=== PATIENT | female | born 1940 | race Caucasian/White ===

== ENCOUNTER 2017-07-06 08:30 | Inpatient (IN) | payer OTHER, MEDICARE ==
[~2017-07-06] VITALS: Ht 157.5 cm; Wt 69.2 kg
[2017-08-20] MEDS ORDERED: ATEN25TA PO (11:21)
[2017-08-20] MEDS ORDERED: METF500T PO (11:21)
[2017-08-20] MEDS ORDERED: FISHCAP4 PO (11:21)
[2017-08-20] MEDS ORDERED: LOSA50TA PO (11:21)
[2017-08-20] MEDS ORDERED: ACET-822 PO (11:21)
[2017-08-20] MEDS ORDERED: ATOR20TA15 PO (11:21)
[2017-08-24] MEDS ORDERED: ACETAMINOPHEN 1000 MG/100 ML 100 ML IV ONE (05:51)
[2017-08-24] MEDS ORDERED: GENTAMICIN SULFATE 80 MG/2 ML VIAL ONE (06:26)
[2017-08-24] MEDS ORDERED: METOPROLOL TARTRATE 25 MG TAB PO PRN (06:30)
[2017-08-24] MEDS ORDERED: CEFAZOLIN INJ 2,000 MG in SODIUM CHLORIDE 0.9% INJ 100 ML IV SCH (06:30)
[2017-08-24] MEDS ORDERED: CHLORHEXIDINE GLUCONATE 4% SOLN 120 ML BTL TOPICAL SCH (06:30)
[2017-08-24] MEDS ORDERED: DEXAMETHASONE SOD PHOS PF 10 MG/ML VIAL IV PUSH ONE (06:30)
[2017-08-24] MEDS ORDERED: LACTATED RINGER'S 1000 ML IV PRN (06:30)
[2017-08-24] MEDS ORDERED: POVIDONE IODINE 7.5% SCRUB 118 ML BOTTLE TOPICAL SCH (06:30)
[2017-08-24] MEDS ORDERED: CHLORHEXIDINE GLUCONATE 2 % 1 PACK (2 CLOTHS) TOPICAL PRN (06:30)
[2017-08-24] MEDS ORDERED: VANCOMYCIN 1 GM/200 ML INJ 200 ML IV SCH (06:30)
[2017-08-24] MEDS ORDERED: SODIUM CHLORID 0.9% 500 ML IV PRN (06:30)
[2017-08-24] MEDS ORDERED: POVIDONE IODINE 5% (ANTISEPSIS KIT) 4 APPLICATIONS EACH NARE PRN (06:30)
[2017-08-24] MEDS ORDERED: CALC1TAB16 PO (06:45)
[2017-08-24] MEDS ORDERED: HYDR-3288 PO (06:55)
[2017-08-24] MEDS ORDERED: ASPI81CH6 CHEW (06:55)
[2017-08-24] MEDS ORDERED: ACETAMINOPHEN/HYDROcodone 325 MG/10 MG TAB PO PRN (07:00)
[2017-08-24] MEDS ORDERED: ONDANSETRON HCL 4 MG/2 ML VIAL IVP PRN (07:00)
[2017-08-24] MEDS ORDERED: MORPHINE SULFATE 4 MG/ML INJ IV PUSH PRN (07:00)
[2017-08-24] MEDS ORDERED: diphenhydrAMINE HCL 50 MG/ML VIAL IV PUSH PRN (07:00)
[2017-08-24] MEDS ORDERED: ZOLPIDEM TARTRATE 5 MG TAB PO PRN (07:00)
[2017-08-24 07:50] VITALS: PULSE 76
[2017-08-24] MEDS ORDERED: Post-op Orders (for Pharmacy) XX ONE (08:00)
[2017-08-24] MEDS ORDERED: SODIUM CHLORIDE 0.9% IV SCH (08:30)
[2017-08-24] MEDS ORDERED: ROPIVACAINE PERI-ARTICULAR INJECTION. P-ARTICULR SCH ×5 (08:30)
[2017-08-24] MEDS ORDERED: TRANEXAMIC PERI-ARTICULAR 3,000 MG/NS 100 ML P-ARTICULR SCH ×2 (08:30)
[2017-08-24] MEDS ORDERED: TRANEXAMIC ACID IV SCH (08:30)
[2017-08-24] MEDS: metFORMIN HCL 500 MG TAB PO SCH ×2 (09:00→18:29)
[2017-08-24] MEDS: LOSARTAN 50 MG TAB PO SCH (09:00)
[2017-08-24] MEDS ORDERED: MIDAZOLAM HCL 2 MG/2 ML VIAL ONE (11:17)
--- NOTE | 2017-08-24 11:18 | MP ---
cc: Geovanni Hale MD DATE OF OPERATION: 08/24/2017 PREOPERATIVE DIAGNOSIS: Right shoulder osteoarthritis. POSTOPERATIVE DIAGNOSIS: Right shoulder osteoarthritis. PROCEDURE: Right total shoulder arthroplasty. SURGEON: Geovanni Hale MD BRUSH CLEARING LABORER: VERONICA Govea. ANESTHESIA: General with an anterior interscalene block. ESTIMATED BLOOD LOSS: 200 mL. COMPLICATIONS: None. IMPLANTS USED: Arthrex size small cemented glenoid component, size 9 humeral stem, size 46 x 17 humeral head. JUSTIFICATION: This patient is a 76-year-old female with a history of severe end-stage osteoarthritis involving the right shoulder. She has severe disabling pain with any movement or use of that shoulder and also pain at rest. She has failed extensive nonoperative conservative treatment which extended over 3 months duration to include medications, therapy, injections, activity modification. X-rays of the right shoulder reveals severe end-stage osteoarthritis with [id number] joint space narrowing, subchondral sclerosis, subchondral cyst, osteophyte formation with deformity and subluxation. The patient was counseled as to the risks, benefits and alternatives to a total shoulder arthroplasty. The risks were discussed, which include, but are not limited to anesthesia, bleeding, infection, damage to nerves and blood vessels, pain, stiffness, fracture dislocation, blood clots, continued pain. The patient's symptoms were severe and unresponsive to conservative treatment. She favored the benefits over the risks and did wish to proceed with surgical intervention for the right shoulder. PROCEDURE IN DETAIL: Written consent was obtained. The patient was identified by name. Scalene block anesthesia was administered to the right upper extremity by the anesthesiologist. The patient was taken to the operating room. General anesthesia was administered, as well as 2 grams of IV Ancef and 1 gram of IV vancomycin. The patient was carefully placed in a beach chair position. All bony prominences and pressure points were well padded. The right shoulder and right upper extremity prepped and draped using isopropyl alcohol, Hibiclens solution and ChloraPrep solution. After a timeout was performed, an longitudinal incision was made over the anterior aspect of the right shoulder. The deltopectoral interval was explored. The conjoined tendon was retracted medially. A 15 blade scalpel was used to incise the subscapularis tendon and capsule. This was tagged with multiple #2 FiberWire sutures. The humeral head was dislocated. A rongeur were used to remove osteophytes around the humeral head and glenoid. A guidewire was used to entered into the superior aspect of the humeral head and shaft region. Subsequently, a humeral resection guide was placed over the guidewire. This was pinned in place and the humeral resection was performed. At this point, a canal finder was placed within the humeral shaft and this was followed by sequential hand reaming up to 7 mm. Subsequently, sequential broaching up to a size 9 was performed. Once the humerus was prepared, attention was turned to the glenoid where the capsule was released off the glenoid circumferentially to allow for mobilization. Once adequate exposure was achieved, a size small glenoid component trial was placed and a central drill hole was placed. This was followed by the reaming and subsequently the superior and inferior drill holes were performed in preparation for the glenoid component. The shoulder was thoroughly irrigated with sterile saline pulse lavage antibiotic impregnated solution. Once repaired, the size small glenoid component was cemented and placed and this was held in place manually until cement hardened. I removed extravasated cement surrounding the glenoid component once it was press fit. Attention was then turned back to the humerus where a final size 9 humeral stem was implanted. The inferior and superior screws were then locked in place for the inclination of the neck and trial head components were evaluated. The final size 46 x 17 head was implanted and impacted in place for stability. With the shoulder reduced, the arm could be forward flexed to 170 degrees without evidence of anterior instability or impingement. I could internally and externally rotate the arm, again without evidence of impingement or instability. At this point, the subscapularis tendon was repaired primarily with the multiple #2 FiberWire sutures. The surgical wound was thoroughly irrigated with sterile saline solution. The subcutaneous layer was closed with 3-0 Vicryl suture. Skin was closed with Dermabond. Sterile dressing was applied. The patient tolerated the procedure well. There were no intraoperative complications noted. Roni Miranda PA-C was present for the entire procedure to clear patient positioning and the procedure itself. The medical necessity of a physician child center assistant was indicated in this case due to the complexity of the procedure. He assisted with appropriate manipulation of the arm. He assisted with preparation of bone and also implantation of the prosthetic replacement during the surgical procedure. MD MIRZA Perales/MYESHA , 10:51 AM , 11:17 AM
[2017-08-24] MEDS: SODIUM CHLOR 0.9% 1000 ML INJ 1,000 ML IV SCH ×2 (11:41→18:00)
[2017-08-24] MEDS ORDERED: DO NOT ADM ANY ANTICOAGULANT DRUGS PRN (11:45)
[2017-08-24] MEDS ORDERED: *morphine SULFATE 4 MG/ML PERIprocedure ONLY ONE ×2 (11:54→12:49)
[2017-08-24] MEDS ORDERED: ROCURONIUM INJ 50 MG/5 ML SYRINGE IV PUSH ONE (12:00)
[2017-08-24] MEDS ORDERED: METOPROLOL TARTRATE 5 MG/5 ML VIAL IV ONE (12:00)
[2017-08-24] MEDS ORDERED: NEOSTIGMINE 5 MG/5 ML SYRINGE IV PUSH ONE (12:00)
[2017-08-24] MEDS ORDERED: LIDOCAINE HCL 1% PF 5 ML SYRINGE OTHER ONE (12:00)
[2017-08-24] MEDS ORDERED: PHENYLEPHRINE HCL 10 MG/ML VIAL IV ONE (12:00)
[2017-08-24] MEDS ORDERED: GLYCOPYRROLATE 1 MG/5 ML SYRINGE IV PUSH ONE (12:00)
[2017-08-24] MEDS ORDERED: ePHEDrine/NS 25 MG/5 ML SYRINGE IV ONE (12:00)
[2017-08-24] MEDS ORDERED: PROPOFOL 200 MG/20 ML AMP IV ONE (12:00)
[2017-08-24] MEDS ORDERED: LACTATED RINGER'S 1000 ML INJ 1,000 ML IV ONE (12:00)
[2017-08-24] MEDS ORDERED: PHENYLEPH/NS 1000 MCG/10 ML SYR IV ONE (12:00)
[2017-08-24] MEDS ORDERED: ONDANSETRON HCL 4 MG/2 ML VIAL IV PUSH ONE (12:00)
--- NOTE | 2017-08-24 12:07 | RADRPT ---
EXAM DATE/TIME: 08/24/2017 12:21 [place] COMPARISON: No previous studies available for comparison. INDICATIONS : Post-op meghana right shoulder arthroplasty. MEDICAL HISTORY : Hypertension. Diabetes mellitus type II. SURGICAL HISTORY : Hysterectomy. ENCOUNTER: Initial ACUITY: 1 day PAIN SCORE: 5/10 LOCATION: Right upper extremity FINDINGS: There is a right shoulder prosthesis present. There is soft tissues density and air seen around the r ight glenohumeral joint which is not expected following surgery. The prosthetic component at the prox imal humerus appears well placed. CONCLUSION: Status post placement of a right shoulder prosthesis. José Miguel Stevens MD on August 24, 2017 at 12:04 Board Certified Radiologist. This report was verified electronically.
--- NOTE | 2017-08-24 15:16 | EKG ---
Date Performed: 08/24/2017 Time Performed: 06:50:08 PTAGE: 76 years EKG: Sinus rhythm LOW QRS VOLTAGE IN PRECORDIAL LEADS MODERATE INTRAVENTRICULAR CONDUCTION DELAY MODERATE ST DEPRESSIO N ABNORMAL ECG NO PREVIOUS TRACING DOCTOR: Jeffrey Mijares Interpretating Date/Time 08/24/2017 15:11:32
--- NOTE | 2017-08-24 15:27 | PD.CONS ---
HPI Service [facility] Hospitalists Consult Requested By Dr. Hale Reason for Consult Medical management Primary Care Physician Luz Elena Soriano MD Diagnoses: History of Present Illness 76 year old female with diabetes, hypertension, and hyperlipidemia admitted to the orthopedic service for right shoulder total arthroplasty. Hospitalist service consulted for medical management. She is seen following her procedure when she was brought to the floor. She states the surgery went well and she ultimately went through with the procedure due to decreased quality of life from chronic right shoulder arthritis and rotator cuff pathology. She states otherwise she is in generally healthy condition. Her pain is currently controlled. Her only complaint was spasms in her bladder following surgery when she tried to urinate on the bed langley. She denies urinary urgency, frequency, fever, or chills but states she has been treated for UTIs in the past. 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 Hysterectomy Appendectomy Reported Medications Aspirin Low Dose (Aspirin) 81 Mg Chew 81 Mg CHEW BID 30 Days [place] (Hydrocodone-Acetaminophen) 7.5-325 mg Tab 1-2 Tab PO Q6H PRN Calcium Citrate-Vitamin D 315-200 Mg-Unit Tab 1 Tab PO BID Tylenol Extra Strength (Acetaminophen) 500 Mg Tablet 1 Tab PO DAILY Fish Oil + D3 (Fish Oil-Cholecalciferol) 1,200-1,000 Mg-Unit Cap 1 Cap PO DAILY Atorvastatin (Atorvastatin Calcium) 20 Mg Tab 20 Mg PO HS Metformin (Metformin HCl) 500 Mg Tab 500 Mg PO BIDPC Atenolol 25 Mg Tab 25 Mg PO HS Losartan (Losartan Potassium) 50 Mg Tab 50 Mg PO DAILY Active Ordered Medications Acetaminophen 100 ml @ As Directed STK-MED ONCE IV; Start 08/24/17 at 05:51; Stop 08/24/17 at 05:52; Status DC Acetaminophen/ Hydrocodone Bitart ([place] 10-325 Mg) 1 tab Q4H PRN PO; Start 08/24/17 at 07:00 Acetaminophen/ Hydrocodone Bitart ([place] 10-325 Mg) 2 tab Q6H PRN PO; Start 08/24/17 at 07:00 Atenolol (Tenormin) 25 mg HS PO; Start 08/24/17 at 21:00 Atorvastatin Calcium (Lipitor) 20 mg HS PO; Start 08/24/17 at 21:00 Cefazolin Sodium 1000 mg/Sodium Chloride 100 ml @ 200 mls/hr Q6H IV Last administered on 08/24/17at 13:15; Admin Dose 200 MLS/HR; Start 08/24/17 at 13:00; Stop 08/25/17 at 01:29 Cefazolin Sodium 2000 mg/Sodium Chloride 120 ml @ 240 mls/hr COLLECTIONS ATTORNEY IV Last administered on 08/24/17at 08:34; Admin Dose 240 MLS/HR; Start 08/24/17 at 06:30; Stop 08/25/17 at 06:29 Chlorhexidine Gluconate (Chlorhexidine 2% Cloth) 3 pack COLLECTIONS ATTORNEY PRN TOPICAL Last administered on 08/24/17at 06:45; Admin Dose 3 PACK; Start 08/24/17 at 06:30; Stop 08/27/17 at 06:29 Chlorhexidine Gluconate (Hibiclens 4% Top Soln) 1 applic ONCE TOPICAL Last administered on 08/24/17at 06:45; Admin Dose 1 APPLIC; Start 08/24/17 at 06:30; Stop 08/27/17 at 06:29 Dexamethasone Sodium Phosphate (Decadron Pf Inj) 10 mg ONCE ONCE IV PUSH Last administered on 08/24/17at 07:22; Admin Dose 10 MG; Start 08/24/17 at 06:30; Stop 08/24/17 at 06:31; Status DC Diphenhydramine HCl (Benadryl Inj) 25 mg Q6H PRN IV PUSH; Start 08/24/17 at 07: 00 Docusate Sodium (Colace) 100 mg BID PO; Start 08/25/17 at 21:00 Enoxaparin Sodium (Lovenox Inj) 40 mg Q24H SQ; Start 08/25/17 at 10:00; Stop at 10:01 Fentanyl Citrate (fentaNYL INJ) 200 mcg STK-MED ONCE .ROUTE; Start 08/24/17 at 11 :17; Stop 08/24/17 at 11:18; Status DC Gentamicin Sulfate (Gentamicin Inj) 240 mg STK-MED ONCE .ROUTE; Start 08/24/17 at 06:26; Stop 08/24/17 at 06:27; Status DC Lactated Ringer's 1,000 ml @ 30 mls/hr Q24H PRN IV Last administered on at 07:15; Admin Dose 30 MLS/HR; Start 08/24/17 at 06:30; Stop 08/27/17 at 06:29 Losartan Potassium (Cozaar) 50 mg DAILY PO; Start 08/24/17 at 09:00 Metformin HCl (Glucophage) 500 mg BIDPC PO; Start 08/24/17 at 09:00 Metoprolol Tartrate (Lopressor) 25 mg COLLECTIONS ATTORNEY PRN PO; Start 08/24/17 at 06:30; Stop 08/27/17 at 06:29 Midazolam HCl (Versed Inj) 4 mg STK-MED ONCE .ROUTE; Start 08/24/17 at 11:17; Stop 08/24/17 at 11:18; Status DC Miscellaneous Information ALL NURSING DEPARTME... UNSCH PRN .XX; Start 08/24/17 at 11:45; Stop 08/25/17 at 11:44 Miscellaneous Information (Post-op Orders (for Pharmacy)) STAT ONCE XX; Start 08/24/17 at 08:00; Stop 08/24/17 at 08:01; Status DC Morphine Sulfate (*morphine INJ PERIprocedure ONLY) 4 mg STK-MED ONCE .ROUTE Last administered on 08/24/17at 11:54; Admin Dose 4 MG; Start 08/24/17 at 11:54; Stop 08/24/17 at 11:55; Status DC Morphine Sulfate (*morphine INJ PERIprocedure ONLY) 4 mg STK-MED ONCE .ROUTE Last administered on 08/24/17at 12:49; Admin Dose 4 MG; Start 08/24/17 at 12:49; Stop 08/24/17 at 12:50; Status DC Morphine Sulfate (Morphine Inj) 3 mg Q3H PRN IV PUSH; Start 08/24/17 at 07:00 Multivitamins/ Minerals Therapeutic (Theragran M Tab) 1 tab BID PO; Start at 21:00; Stop 10/24/17 at 20:59 Ondansetron HCl (Zofran Inj) 4 mg Q6H PRN IVP; Start 08/24/17 at 07:00 Povidone Iodine (Betadine 5% Antisepsis Kit) 1 applic COLLECTIONS ATTORNEY PRN EACH NARE Last administered on 08/24/17at 06:45; Admin Dose 1 APPLIC; Start 08/24/17 at 06:30 ; Stop 08/27/17 at 06:29 Povidone Iodine (Betadine 7.5% Scrub) 1 applic ONCE TOPICAL; Start 08/24/17 at 06 :30; Stop 08/27/17 at 06:29 Ropivacaine 24.63 ml/Ketorolac Tromethamine 30 mg/Epinephrine HCl 0.5 mg/ Clonidine 80 mcg/ Sodium Chloride 100 ml @ 200 mls/hr ONCE P-ARTICULR; Start at 08:30; Stop 08/24/17 at 14:30; Status DC Sodium Chloride 500 ml @ 30 mls/hr [id number] PRN IV; Start 08/24/17 at 06:30; Stop 08/27/17 at 06:29 Sodium Chloride 1,000 ml @ 100 mls/hr Q10H IV Last administered on 08/24/17at 11: 41; Admin Dose 100 MLS/HR; Start 08/24/17 at 08:00 Tranexamic Acid 1038 mg/Sodium Chloride 110.38 ml @ 200 mls/ hr ONCE IV; Start 08/24/17 at 08:30; Stop 08/24/17 at 14:30; Status DC Tranexamic Acid 3000 mg/Sodium Chloride 130 ml @ 260 mls/hr ONCE P-ARTICULR; Start 08/24/17 at 08:30; Stop 08/24/17 at 14:30; Status DC Vancomycin/Sodium Chloride 200 ml @ 250 mls/hr COLLECTIONS ATTORNEY IV Last administered on 08/24/17at 08:15; Admin Dose 250 MLS/HR; Start 08/24/17 at 06:30; Stop 08/25/17 at 06:29 Zolpidem Tartrate (Ambien) 5 mg HS PRN PO; Start 08/24/17 at 07:00 Family History Diabetes in several brothers Social History Lives with Denies EtOH, tobacco, illicit drugs Physical Exam Vital Signs Vital Signs Date Time Temp Pulse Resp B/P (MAP) Pulse Ox O2 Delivery O2 Flow Rate FiO2 08/24/17 14:00 97.7 82 19 151/72 (98) 95 Nasal Cannula 2 08/24/17 13:00 73 20 142/65 (90) 96 Nasal Cannula 2 08/24/17 12:30 77 22 136/63 (87) 99 Nasal Cannula 2 08/24/17 12:00 65 14 135/58 (83) 98 Nasal Cannula 2 08/24/17 11:45 70 21 150/69 (96) 95 Nasal Cannula 2 08/24/17 11:30 73 20 146/67 (93) 95 Nasal Cannula 2 08/24/17 11:15 83 18 156/65 (95) 93 Nasal Cannula 2 08/24/17 11:09 97.9 82 20 143/65 (91) 94 Simple Mask 6 08/24/17 08:12 77 133/64 (87) 08/24/17 07:50 100 Nasal Cannula 08/24/17 07:50 76 08/24/17 06:45 99.0 72 18 184/86 (118) 99 Physical Exam GENERAL: Well-nourished, well-developed elderly female in no apparent distress. SKIN: No rashes, ecchymoses or lesions. Cool and dry. HEENT: Atraumatic. Normocephalic. No temporal or scalp tenderness. Pupils equal round and reactive. Extraocular motions intact. No scleral icterus. No injection or drainage. Nose without bleeding, purulent drainage or septal hematoma. Throat without erythema, tonsillar hypertrophy or exudate. Uvula midline. Airway patent. NECK: Trachea midline. No JVD or lymphadenopathy. Supple, nontender, no meningeal signs. CARDIOVASCULAR: Regular rate and rhythm without murmurs, gallops, or rubs. RESPIRATORY: Clear to auscultation. Breath sounds equal bilaterally. No wheezes , rales, or rhonchi. GASTROINTESTINAL: Abdomen soft, nontender, nondistended. No hepatosplenomegaly or palpable masses. No guarding. MUSCULOSKELETAL: Extremities without clubbing, cyanosis, or edema. No joint tenderness, effusion, or edema noted. RUE in sling. No calf tenderness. NEUROLOGICAL: Awake and alert.Motor and sensory grossly within normal limits. Normal speech. Imaging Shoulder X-Ray 08/24/17 0000 Signed Impressions: Service Date/Time: Thursday, August 24, 2017 12:21 - CONCLUSION: Status post placement of a right shoulder prosthesis. José Miguel Stevens MD Assessment and Plan Assessment and Plan 76 YOWF admitted for total R shoulder arthroplasty. Hospitalist consulted for medical management. 1. S/P R shoulder total arthroplasty - Ortho managing - Pain control - Lovenox ordered for tomorrow - PT - Check post-op H&H tomorrow 2. Bladder spasm - Check U/A for possible UTI 3. DM - Resume home metformin 4. HTN - Resume home Losartan - Clonidine PRN 5. Benign tachycardia - Worked up in the past as an outpatient - Continue home atenolol 6. HLD - Continue home statin DVT prophylaxis: Lovenox starting tomorrow Discussed Condition With Patient and RN Clari Cristobal MD Aug 24, 2017 15:27
[2017-08-24] MEDS ORDERED: cloNIDine HCL 0.1 MG TAB PO PRN (16:45)
[2017-08-24 20:00] VITALS: BP 119/73; PULSE 87; RESP 16; TEMP 97.9; O2SAT 96
[2017-08-24] MEDS: ATORVASTATIN 20 MG TAB PO SCH (21:40)
[2017-08-24] MEDS: ATENOLOL 25 MG TAB PO SCH (21:41)
[2017-08-24 23:25] VITALS: BP 107/62; PULSE 90; RESP 16; TEMP 97.5; O2SAT 95
[2017-08-25 03:20] VITALS: BP 142/62; PULSE 79; RESP 16; TEMP 97.8; O2SAT 96
[2017-08-25] MEDS: SODIUM CHLOR 0.9% 1000 ML INJ 1,000 ML IV SCH ×3 (03:46→19:56)
[2017-08-25 05:02] LABS: HEMATOCRIT 31.7 % (35.0-46.0); HEMOGLOBIN 11.3 GM/DL (11.6-15.3); MEAN CORPUSCULAR HGB CONC 35.6 % (32.0-36.0); MEAN PLATELET VOLUME 7.7 FL (7.0-11.0); PLATELET COUNT 260 TH/MM3 (150-450); RED BLOOD COUNT 3.52 MIL/MM3 (4.00-5.30); RED CELL DISTRIBUTION WIDTH 13.3 % (11.6-17.2); WHITE BLOOD COUNT 9.8 TH/MM3 (4.0-11.0)
[2017-08-25 05:28] LABS: BICARBONATE 23.4 MEQ/L (21.0-32.0); CALCIUM 8.6 MG/DL (8.5-10.1); CREATININE 1.04 MG/DL (0.50-1.00)
[2017-08-25 07:46] VITALS: BP 104/59; PULSE 77; RESP 18; TEMP 97.3; O2SAT 96
--- NOTE | 2017-08-25 08:02 | PD.ORT.PN ---
Subjective Post Op Day #: 1 Subjective Remarks pain controlled. nerve block still in effect. Objective Vitals Vital Signs Date Time Temp Pulse Resp B/P (MAP) Pulse Ox O2 Delivery O2 Flow Rate FiO2 08/25/17 07:46 97.3 77 18 104/59 (74) 96 08/25/17 07:17 Room Air 08/25/17 03:20 97.8 79 16 142/62 (88) 96 08/24/17 23:25 97.5 90 16 107/62 (77) 95 08/24/17 20:00 97.9 87 16 119/73 (88) 96 08/24/17 14:00 97.7 82 19 151/72 (98) 95 Nasal Cannula 2 08/24/17 13:00 73 20 142/65 (90) 96 Nasal Cannula 2 08/24/17 12:30 77 22 136/63 (87) 99 Nasal Cannula 2 08/24/17 12:00 65 14 135/58 (83) 98 Nasal Cannula 2 08/24/17 11:45 70 21 150/69 (96) 95 Nasal Cannula 2 08/24/17 11:30 73 20 146/67 (93) 95 Nasal Cannula 2 08/24/17 11:15 83 18 156/65 (95) 93 Nasal Cannula 2 08/24/17 11:09 97.9 82 20 143/65 (91) 94 Simple Mask 6 08/24/17 08:12 77 133/64 (87) I/O 08/24/17 08/24/17 08/24/17 08/25/17 08/25/17 08/25/17 07:00 15:00 23:00 07:00 15:00 23:00 Intake Total 2210 ml 317 ml 580 ml Output Total 350 ml Balance 1860 ml 317 ml 580 ml Intake Oral 210 ml 480 ml IV Total 2000 ml 317 ml 100 ml Output Urine Total 300 ml Estimated Blood Loss 50 ml # Voids 1 4 # Bowel Movements 0 Result Diagram: 08/25/1732708/25/17327 Objective Remarks in bed, nad sling in place dressing c/d/i mild ecchymosis cap refill nerve block still in effect Assessment & Plan Ortho Post Op Day #: 1 Problem List: Assessment and Plan s/p R TSA sling and swathe gentle ROM, no external rotation lovenox, d/c on asa81 PT nerve block still in effect, monitor pain as block wears off d/c planning home with c and pt f/up dr. carmen 2 weeks Geovanni Miranda Aug 25, 2017 08:02
--- NOTE | 2017-08-25 08:03 | HHI.DCPOC ---
Discharge Care Plan Diagnosis: (1) Primary localized osteoarthrosis of shoulder region Your Health Problems Are: Difficulty with ADL Goals to Promote Your Health * To prevent worsening of your condition and complications * To maintain your health at the optimal level Directions to Meet Your Goals Take your medications as prescribed Follow your dietary instruction Follow activity as directed Keep your appointments as scheduled Take your immunizations and boosters as scheduled If your symptoms worsen call your PCP, if no PCP go to Urgent Care Center or Emergency Room Smoking is Dangerous to Your Health. Avoid second hand smoke Call the 24-hour hour crisis hotline for domestic abuse at Geovanni Miranda Aug 25, 2017 08:03
--- NOTE | 2017-08-25 08:04 | HHI.FF ---
Face to Face Verification Diagnosis: (1) Primary localized osteoarthrosis of shoulder region Physical Therapy Gait training, Safety evaluation, Transfer training, bed to chair Occupational Therapy Right UE Range of Motion: Passive ROM Nursing RN: 3 days/week x 2 weeks Nursing: Dressing changes Dressing Changes: Daily dressing change I have seen patient Unique Leon on 08/25/17. My clinical findings support the need for the requested home health care services because: Limited ability to care for self High risk of falls I certify that my clinical findings support that this patient is homebound because: Post-op weakness Unsteady gait/balance Geovanni Miranda Aug 25, 2017 08:04
[2017-08-25] MEDS: metFORMIN HCL 500 MG TAB PO SCH ×2 (08:48→17:40)
[2017-08-25] MEDS: LOSARTAN 50 MG TAB PO SCH (08:48)
--- NOTE | 2017-08-25 08:51 | HHI.PR ---
Subjective Remarks Follow-up for urinary symptoms No overnight events, no urinary symptoms, afebrile. No dysuria, frequency or urgency. Discussed with nursing. Pain is stable. Objective Vitals Vital Signs Date Time Temp Pulse Resp B/P (MAP) Pulse Ox O2 Delivery O2 Flow Rate FiO2 08/25/17 07:46 97.3 77 18 104/59 (74) 96 08/25/17 07:17 Room Air 08/25/17 03:20 97.8 79 16 142/62 (88) 96 08/24/17 23:25 97.5 90 16 107/62 (77) 95 08/24/17 20:00 97.9 87 16 119/73 (88) 96 08/24/17 14:00 97.7 82 19 151/72 (98) 95 Nasal Cannula 2 08/24/17 13:00 73 20 142/65 (90) 96 Nasal Cannula 2 08/24/17 12:30 77 22 136/63 (87) 99 Nasal Cannula 2 08/24/17 12:00 65 14 135/58 (83) 98 Nasal Cannula 2 08/24/17 11:45 70 21 150/69 (96) 95 Nasal Cannula 2 08/24/17 11:30 73 20 146/67 (93) 95 Nasal Cannula 2 08/24/17 11:15 83 18 156/65 (95) 93 Nasal Cannula 2 08/24/17 11:09 97.9 82 20 143/65 (91) 94 Simple Mask 6 I/O 08/24/17 08/24/17 08/24/17 08/25/17 08/25/17 08/25/17 07:00 15:00 23:00 07:00 15:00 23:00 Intake Total 2210 ml 317 ml 580 ml Output Total 350 ml Balance 1860 ml 317 ml 580 ml Intake Oral 210 ml 480 ml IV Total 2000 ml 317 ml 100 ml Output Urine Total 300 ml Estimated Blood Loss 50 ml # Voids 1 4 # Bowel Movements 0 Result Diagram: 08/25/1732708/25/17327 Objective Remarks Not in distress, well-nourished, looks stated age Normal rate and regular rhythm, no murmurs gallops or rubs appreciated. Clear to auscultation and symmetric bilaterally, normal respiratory effort. Normal bowel sounds, soft, non-tender, nondistended, no guarding. Right upper extremity sling in place AAO x3, no cranial nerve deficits A/P Assessment and Plan 76 YOWF admitted for total R shoulder arthroplasty. Hospitalist consulted for medical management. 1. S/P R shoulder total arthroplasty - Ortho managing - Pain control - Hgb stable 2. Bladder spasm -Resolved, asymptomatic. No further workup. 3. DM - Resume home metformin 4. HTN - Resume home Losartan - Clonidine PRN 5. Benign tachycardia - Worked up in the past as an outpatient - Continue home atenolol 6. HLD - Continue home statin DVT prophylaxis: Lovenox Patient is stable, medically clear for discharge, we will sign off. Crystal Oconnor MD Aug 25, 2017 08:51
[2017-08-25] MEDS ORDERED: ENOXAPARIN SODIUM 40 MG/0.4 ML SYRINGE SQ SCH (10:00)
[2017-08-25 11:52] VITALS: BP 141/65; PULSE 74; RESP 18; TEMP 97.9; O2SAT 96
[2017-08-25 15:38] VITALS: BP 158/66; PULSE 64; RESP 18; TEMP 97.6; O2SAT 98
[2017-08-25 19:25] VITALS: BP 117/69; PULSE 74; RESP 18; TEMP 98.3; O2SAT 96
[2017-08-25] MEDS: DOCUSATE SODIUM 100 MG CAP PO SCH (19:49)
[2017-08-25] MEDS: MULTIVITAMINS/MINERALS THERAPEUTIC TAB PO SCH (19:50)
[2017-08-25] MEDS: ATENOLOL 25 MG TAB PO SCH (19:50)
[2017-08-25] MEDS: ATORVASTATIN 20 MG TAB PO SCH (19:50)
[2017-08-26 00:29] VITALS: BP 141/66; PULSE 74; RESP 16; TEMP 97.6; O2SAT 97
[2017-08-26] MEDS: ACETAMINOPHEN/HYDROcodone 325 MG/10 MG TAB PO PRN ×3 (02:21→11:41)
[2017-08-26 04:49] VITALS: BP 108/53; PULSE 72; RESP 18; TEMP 97.7; O2SAT 95
[2017-08-26 06:58] LABS: HEMOGLOBIN 9.6 GM/DL (11.6-15.3); MEAN CELL VOLUME 90.8 FL (80.0-100.0); MEAN CORPUSCULAR HEMOGLOBIN 32.3 PG (27.0-34.0); MEAN CORPUSCULAR HGB CONC 35.6 % (32.0-36.0); MEAN PLATELET VOLUME 7.5 FL (7.0-11.0); PLATELET COUNT 204 TH/MM3 (150-450); RED BLOOD COUNT 2.98 MIL/MM3 (4.00-5.30); RED CELL DISTRIBUTION WIDTH 13.8 % (11.6-17.2); WHITE BLOOD COUNT 8.1 TH/MM3 (4.0-11.0)
[2017-08-26 07:14] LABS: BICARBONATE 25.2 MEQ/L (21.0-32.0); CALCIUM 8.7 MG/DL (8.5-10.1); CREATININE 0.78 MG/DL (0.50-1.00)
--- NOTE | 2017-08-26 07:56 | PD.ORT.PN ---
Subjective Post Op Day #: 2 Subjective Remarks pain controlled with meds. Objective Vitals Vital Signs Date Time Temp Pulse Resp B/P (MAP) Pulse Ox O2 Delivery O2 Flow Rate FiO2 08/26/17 04:49 97.7 72 18 108/53 (71) 95 08/26/17 00:29 97.6 74 16 141/66 (91) 97 08/25/17 19:59 Room Air 08/25/17 19:25 98.3 74 18 117/69 (85) 96 08/25/17 15:38 97.6 64 18 158/66 (96) 98 08/25/17 11:52 97.9 74 18 141/65 (90) 96 I/O 08/25/17 08/25/17 08/25/17 08/26/17 08/26/17 08/26/17 07:00 15:00 23:00 07:00 15:00 23:00 Intake Total 580 ml 850 ml 360 ml Balance 580 ml 850 ml 360 ml Intake Oral 480 ml 850 ml 360 ml IV Total 100 ml # Voids 4 4 3 # Bowel Movements 0 0 Result Diagram: 08/26/17 0602 08/26/17 0602 Objective Remarks in bed, nad sling in place dressing c/d/i mild ecchymosis cap refill nvi Assessment & Plan Ortho Post Op Day #: 3 Problem List: Assessment and Plan s/p R TSA sling and swathe gentle ROM, no external rotation lovenox, d/c on asa81 PT d/c planning home with [facility] and pt - cleared today f/up dr. carmen 2 weeks Geovanni Miranda Aug 26, 2017 07:56
[2017-08-26 08:00] VITALS: BP 114/67; PULSE 69; RESP 16; TEMP 97.8; O2SAT 95
[2017-08-26] MEDS: metFORMIN HCL 500 MG TAB PO SCH (09:43)
[2017-08-26] MEDS: MULTIVITAMINS/MINERALS THERAPEUTIC TAB PO SCH (09:43)
[2017-08-26] MEDS: LOSARTAN 50 MG TAB PO SCH (09:43)
[2017-08-26] MEDS: DOCUSATE SODIUM 100 MG CAP PO SCH (09:43)
== END 2017-08-26 12:01 | disposition home health service (06) | DRG 483 ==
LOC: EDUNIT# 10:00 → HSDI 08-24 05:29 → N06A 08-24 15:20
PROVIDERS: ADMIT Orthopaedic Surgery Sports Medicine; ATTEND Orthopaedic Surgery Sports Medicine
PROC: 3E0T3BZ Introduction of Anesthetic Agent into Peripheral Nerves and Plexi, Percutaneous Approach (ICD-10-PCS; 2017-08-24)
PROC: 0RRJ0JZ Replacement of Right Shoulder Joint with Synthetic Substitute, Open Approach (ICD-10-PCS; principal; 2017-08-24 08:43)
DX: M19.011 Primary osteoarthritis, right shoulder (principal); E11.9 Type 2 diabetes mellitus without complications; N32.89 Other specified disorders of bladder; I10 Essential (primary) hypertension; E78.5 Hyperlipidemia, unspecified; R00.0 Tachycardia, unspecified; Z87.440 Personal history of urinary (tract) infections; Z79.84 Long term (current) use of oral hypoglycemic drugs; Z83.3 Family history of diabetes mellitus
CPT/HCPCS: 73030; 80048; 82948; 85027; 86850; 86900; 86901; 93005; 94150; C1776; J0131; J0690; J0735; J1100; J1580; J1650; J1885; J2250; J2270; J2370; J2405; J2710; J2795; J3010; J3370; J7030; J7120